=== PATIENT | female | born 1945 ===

== ENCOUNTER 2025-03-27 10:00 | Day surgery (SDC) | payer OTHER ==
[2025-03-27] MEDS ORDERED: MIDAZOLAM HCL 2 MG/2 ML VIAL IV ONE (11:45)
[2025-03-27] MEDS ORDERED: fentaNYL CITRATE 50 MCG/ML AMPUL IV PUSH ONE (11:45)
[2025-03-27] MEDS ORDERED: DIPHENHYDRAMINE HCL 50 MG/ML VIAL 1ML IV ONE (11:45)
== END 2025-03-27 12:50 | disposition home or self-care (01) ==
LOC: EDBD 10:00 → AMB-ENDOS 10:00
PROVIDERS: ATTEND Colon & Rectal Surgery
DX: D37.4 Neoplasm of uncertain behavior of colon (principal); Z88.0 Allergy status to penicillin